=== PATIENT | female | born 1990 | race African-American/Black ===

== ENCOUNTER 2016-06-30 19:46 | Emergency (ER) | payer MEDICAID ==
[~2016-06-30 19:46] MED LIST: PREN0.01 PO
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
[2016-06-30 21:24] LABS: BLOOD, URINE NEG (NEG); COMMENT (UR) CULT NOT INDICATED; CULTURE IF INDICATED CULT NOT INDICATED; GLUCOSE,URINE NEG (NEG); KETONE, URINE NEG (NEG); MUCUS URINE FEW /lpf (OCC); NITRITE,URINE NEG (NEG); SQUAMOUS EPITHELIAL CELL URINE 12 /hpf (0-5); URINE COLOR YELLOW (YELLW/STRAW)
== END 2016-06-30 21:28 | disposition home or self-care (01) ==
LOC: HOBED 19:46
DX: O47.03 False labor before 37 completed weeks of gestation, third trimester (principal); M54.5 Low back pain; Z3A.33 33 weeks gestation of pregnancy
CPT/HCPCS: 59025; 81001; 96360; 96361

== ENCOUNTER 2016-07-12 10:52 | Emergency (ER) | payer MEDICAID ==
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
== END 2016-07-12 14:32 | disposition home or self-care (01) ==
LOC: HOBED 10:52
DX: O26.853 Spotting complicating pregnancy, third trimester (principal); R10.9 Unspecified abdominal pain; Z69.11 Encounter for mental health services for victim of spousal or partner abuse; Z3A.35 35 weeks gestation of pregnancy
CPT/HCPCS: 59025; 76816; 76819